=== PATIENT | male | born 1975 | race Two or more races ===

== ENCOUNTER 2018-03-20 03:12 | Emergency (ER) | payer BC ==
[~2018-03-20] VITALS: Ht 180.3 cm; Wt 110.8 kg
[2018-03-20] MEDS ORDERED: TRAM50TA2 PO (03:41)
[2018-03-20] MEDS ORDERED: QUET100T4 PO (03:41)
[2018-03-20] MEDS ORDERED: DIVA250T4 PO (03:41)
[2018-03-20] MEDS ORDERED: OMEP-110 PO (03:41)
[2018-03-20] MEDS ORDERED: RISP1TAB45 PO (03:41)
[2018-03-20] MEDS ORDERED: ZIPRASIDONE 20 MG INJ IM ONE ×2 (03:48→04:00)
[2018-03-20] MEDS ORDERED: DIPHENHYDRAMINE 25 MG CAPSULE ONE (03:49)
[2018-03-20] MEDS ORDERED: DIPHENHYDRAMINE 25 MG CAPSULE PO ONE (04:00)
[2018-03-20 04:37] VITALS: BP 142/83
== END 2018-03-20 04:39 | disposition home or self-care (01) ==
LOC: ED 04:33
DX: F51.05 Insomnia due to other mental disorder (principal); F41.1 Generalized anxiety disorder; F31.9 Bipolar disorder, unspecified; Z79.899 Other long term (current) drug therapy
CPT/HCPCS: 96372; 99284; J3486; Q0163

== ENCOUNTER 2020-01-22 00:23 | Emergency (ER) | payer BC, MEDICAID, MEDICARE ==
[~2020-01-22] VITALS: Ht 177.8 cm; Wt 119.6 kg
[~2020-01-22 00:23] MED LIST: DIVA250T4 PO; OMEP-110 PO; QUET100T4 PO; RISP1TAB45 PO; TRAM50TA2 PO
--- NOTE | 2020-01-22 00:34 | NUR ---
EKG DONE IN TRIAGE.
[2020-01-22] MEDS ORDERED: LORazepam 1MG TABLET ONE (00:55)
[2020-01-22] MEDS ORDERED: LORazepam 1MG TABLET PO ONE (01:00)
--- NOTE | 2020-01-22 01:19 | NUR ---
PT REPORTS HX OF ANXIETY AND PALPITATIONS. REPORTS A PANIC ATTACK EARLIER. DENIES ANY CHEST PAIN, SHORTNESS OF BREATH OR TROUBLE BREATHING.
[2020-01-22] MEDS ORDERED: DIPHENHYDRAMINE 25 MG CAPSULE PO ONE (02:00)
[2020-01-22] MEDS ORDERED: DIPHENHYDRAMINE 50 MG CAPSULE ONE (02:05)
--- NOTE | 2020-01-22 02:08 | NUR ---
PT RESTING CALMLY IN ROOM. REPORTS ATIVAN DIDN'T HELP. BENADRYL GIVEN PER EMAR.
--- NOTE | 2020-01-22 02:32 | NUR ---
PT REPORTS HE IS STILL HAVING RACING THOUGHTS. DENIES SI OR HI. REPORTS MEDS HERE HAVE NOT HELPED.
[2020-01-22] MEDS ORDERED: HALOPERIDOL 5 MG/ML ONE (02:33)
--- NOTE | 2020-01-22 02:33 | NUR ---
REPORT TO DARYA MUSA
--- NOTE | 2020-01-22 02:38 | NUR ---
REPORT FROM DARYA RN, PT RESTING IN [facility] WATCHING TV, NAD, RESP WNL, SKIN COLOR WNL WARM AND DRY, CALL LIGHT ON LAP, DENIES ADDITIONAL NEEDS AT THIS TIME, WCTM
[2020-01-22] MEDS ORDERED: HALOPERIDOL 5 MG/ML IM ONE (03:00)
[2020-01-22 03:38] VITALS: BP 124/77
--- NOTE | 2020-01-22 03:38 | NUR ---
Patient given discharge instructions and they have confirmed that they understand the instructions. Patient ambulatory with steady gait. Denies additional questions at this time. NAD, RESP WNL, MAEx4, FCS no SOB, skin color WNL warm and dry. Pt left with all personal belongings.
--- NOTE | 2020-01-22 03:39 | NUR ---
pt states that "i called a friend to come pick me up" after discussing with RN that he cannot legally drive after medications administered.
== END 2020-01-22 03:41 | disposition home or self-care (01) ==
LOC: ED 01:11
DX: F41.1 Generalized anxiety disorder (principal); R00.2 Palpitations; R00.0 Tachycardia, unspecified
CPT/HCPCS: 93005; 96372; 99283; J1630; Q0163